=== PATIENT | female | born 1950 | race Caucasian/White ===

== ENCOUNTER 2018-03-06 13:29 | Emergency (ER) | payer OTHER ==
[2018-03-06] MEDS: ACETAMINOPHEN 325 MG TAB PO (14:01)
== END 2018-03-06 15:29 | disposition home or self-care (01) ==
LOC: E/R 13:29
DX: S06.0X1A Concussion with loss of consciousness of 30 minutes or less, initial encounter (principal); E11.9 Type 2 diabetes mellitus without complications; I10 Essential (primary) hypertension; W01.198A Fall on same level from slipping, tripping and stumbling with subsequent striking against other object, initial encounter; Y92.9 Unspecified place or not applicable; Z79.4 Long term (current) use of insulin; Z79.82 Long term (current) use of aspirin
CPT/HCPCS: 70450; 72125; 99284-25

== ENCOUNTER 2018-08-13 11:40 | Emergency (ER) | payer OTHER ==
[2018-08-13] MEDS: SOD CHLORIDE 0.9% 1,000 ML IV (12:49)
[2018-08-13 12:51] LABS: ADD MAN DIFF? NO
[2018-08-13 13:00] LABS: WHITE BLOOD COUNT 7.8 10^3/ul (4.8-10.8)
[2018-08-13 13:00] LABS: BASOPHILS % 0.5 % (0.0-2.0); EOSINOPHILS % 0.4 % (0.0-7.0); HEMATOCRIT 34.4 % (37.0-47.0); HEMOGLOBIN 11.2 g/dl (12.0-16.0); LYMPHOCYTES # 2.6 10^3/ul (0.8-2.9); LYMPHOCYTES % 33.6 % (15.0-51.0); MEAN CORPUSCULAR HEMOGLOBIN 27.5 pg (29.0-33.0); MEAN CORPUSCULAR HGB CONC 32.6 g/dl (32.0-37.0); MEAN CORPUSCULAR VOLUME 84.3 fl (82.0-101.0); MEAN PLATELET VOLUME 10.1 fl (7.4-10.4); MONOCYTE # 0.7 10^3/ul (0.3-0.9); MONOCYTES % 8.8 % (0.0-11.0); NEUTROPHIL # 4.4 10^3/ul (1.6-7.5); NEUTROPHILS % 56.2 % (39.0-77.0); PLATELET COUNT 282 10^3/UL (140-415); RED BLOOD COUNT 4.08 10^6/ul (4.20-5.40); RED CELL DISTRIBUTION WIDTH 14.4 % (11.5-14.5)
[2018-08-13 13:20] LABS: ANION GAP 6 (5-13); BLOOD UREA NITROGEN 16 mg/dl (7-20); CALCIUM 9.6 mg/dl (8.4-10.2); CARBON DIOXIDE 29 mmol/L (21-31); CHLORIDE 102 mmol/L (97-110); CREATININE 0.56 mg/dl (0.44-1.00); Estimated GFR > 60 mL/min (>60); GLUCOSE 180 mg/dl (70-220); INR 0.92; PARTIAL THROMBOPLASTIN TIME 25.8 Sec (23.0-35.0); POTASSIUM 4.6 mmol/L (3.5-5.1); PROTIME 12.5 Sec (11.9-14.9); SODIUM 137 mmol/L (135-144)
[2018-08-13] MEDS: MAGNESIUM CITRATE 300 ML BTL PO (13:20)
[2018-08-13 13:33] LABS: CREATINE KINASE 79 IU/L (23-200)
[2018-08-13] MEDS: KETOROLAC 15 MG INJ IV (13:52)
[2018-08-13 13:55] LABS: TROPONIN-I < 0.012 ng/ml (0.000-0.120)
== END 2018-08-13 14:50 | disposition home or self-care (01) ==
LOC: E/R 11:40
DX: K59.00 Constipation, unspecified (principal); I10 Essential (primary) hypertension; E11.9 Type 2 diabetes mellitus without complications; R20.2 Paresthesia of skin; Z79.4 Long term (current) use of insulin
CPT/HCPCS: 36415; 70450; 71045; 80048; 82550; 82962; 84484; 85025; 85610; 85730; 93005; 96374; 99285-25

== ENCOUNTER 2018-10-29 17:20 | Inpatient (IN) | payer OTHER ==
[2018-10-29] MEDS: BELLADONNA/PHENOBARBITAL TAB PO (19:16)
[2018-10-29] MEDS: ONDANSETRON 4 MG INJ IV (19:16)
[2018-10-29] MEDS: LIDOCAINE/MYLANTA 40 ML BTL PO (19:16)
[2018-10-29] MEDS: SOD CHLORIDE 0.9% 1,000 ML IV ×2 (19:16→22:04)
[2018-10-29 19:21] LABS: ADD MAN DIFF? NO
[2018-10-29 19:24] LABS: BASOPHIL # 0.1 10^3/ul (0.0-0.1); BASOPHILS % 0.6 % (0.0-2.0); EOSINOPHILS # 0.1 10^3/ul (0.0-0.5); EOSINOPHILS % 1.3 % (0.0-7.0); HEMATOCRIT 37.5 % (37.0-47.0); HEMOGLOBIN 11.8 g/dl (12.0-16.0); LYMPHOCYTES # 2.8 10^3/ul (0.8-2.9); LYMPHOCYTES % 27.7 % (15.0-51.0); MEAN CORPUSCULAR HEMOGLOBIN 28.1 pg (29.0-33.0); MEAN CORPUSCULAR HGB CONC 31.5 g/dl (32.0-37.0); MEAN CORPUSCULAR VOLUME 89.3 fl (82.0-101.0); MEAN PLATELET VOLUME 10.4 fl (7.4-10.4); MONOCYTE # 0.9 10^3/ul (0.3-0.9); MONOCYTES % 8.8 % (0.0-11.0); NEUTROPHIL # 6.1 10^3/ul (1.6-7.5); NEUTROPHILS % 61.3 % (39.0-77.0); PLATELET COUNT 302 10^3/UL (140-415); RED CELL DISTRIBUTION WIDTH 12.7 % (11.5-14.5)
[2018-10-29 19:32] LABS: ADD UMIC YES; UR ASCORBIC ACID 40 mg/dL (NEGATIVE); UR BILIRUBIN (Dip) NEGATIVE (NEGATIVE); UR BLOOD (Dip) NEGATIVE (NEGATIVE); UR CLARITY SLIGHTLY CLOUDY (CLEAR); UR COLOR YELLOW (YELLOW); UR GLUCOSE (Dip) NEGATIVE (NEGATIVE); UR KETONES (Dip) NEGATIVE (NEGATIVE); UR LEUKOCYTE ESTERASE (Dip) 1+ Leu/ul (NEGATIVE); UR NITRITE (Dip) NEGATIVE (NEGATIVE); UR RBC 3 /HPF (0-5); UR SPECIFIC GRAVITY (Dip) 1.019 (1.003-1.030); UR TOTAL PROTEIN (Dip) NEGATIVE (NEGATIVE); UR UROBILINOGEN (Dip) 1+ mg/dL (NEGATIVE); UR WBC 79 /HPF (0-5)
[2018-10-29 19:42] LABS: ALANINE AMINOTRANSFERASE 36 IU/L (13-69); ALBUMIN 4.6 g/dl (3.3-4.9); ALBUMIN/GLOBULIN RATIO 1.27; ALKALINE PHOSPHATASE 75 IU/L (42-121); ANION GAP 7 (5-13); ASPARTATE AMINO TRANSFERASE 35 IU/L (15-46); BILIRUBIN,INDIRECT 0.6 mg/dl (0-1.1); BILIRUBIN,TOTAL 0.6 mg/dl (0.2-1.3); BLOOD UREA NITROGEN 18 mg/dl (7-20); CALCIUM 9.9 mg/dl (8.4-10.2); CARBON DIOXIDE 29 mmol/L (21-31); CHLORIDE 103 mmol/L (97-110); Estimated GFR > 60 mL/min (>60); GLUCOSE 161 mg/dl (70-220); LIPASE 59 U/L (23-300); POTASSIUM 4.2 mmol/L (3.5-5.1); SODIUM 139 mmol/L (135-144); TOTAL PROTEIN 8.2 g/dl (6.1-8.1)
[2018-10-29 19:52] LABS: TROPONIN-I < 0.012 ng/ml (0.000-0.120)
[2018-10-29] MEDS: CEFTRIAXONE 1 GM/50 ML (PMX) 50 ML IVPB (20:35)
[2018-10-29] MEDS ORDERED: GLUCAGON 1 MG INJ IM (21:30)
[2018-10-29] MEDS ORDERED: GLUCOSE GEL 15 GRAM TUBE BUCCAL (21:30)
[2018-10-29] MEDS ORDERED: GLUCOSE GEL 15 GRAM TUBE PO ×2 (21:30)
[2018-10-29] MEDS ORDERED: MAGNESIUM CITRATE 300 ML BTL PO (21:30)
[2018-10-29] MEDS ORDERED: NACL 0.9% 3 ML SYG IV (21:30)
[2018-10-29] MEDS ORDERED: ONDANSETRON 4 MG INJ IV (21:30)
[2018-10-29] MEDS ORDERED: DEXTROSE 50% 50 ML SYRINGE IV ×2 (21:30)
[2018-10-29] MEDS: ACETAMINOPHEN 325 MG TAB PO (23:27)
[2018-10-30] MEDS: ACCU-CHEK XX ×6 (02:00→20:42)
[2018-10-30 07:06] LABS: ADD MAN DIFF? NO
[2018-10-30 07:13] LABS: BASOPHILS % 0.4 % (0.0-2.0); EOSINOPHILS # 0.1 10^3/ul (0.0-0.5); EOSINOPHILS % 1.3 % (0.0-7.0); HEMATOCRIT 33.8 % (37.0-47.0); HEMOGLOBIN 10.6 g/dl (12.0-16.0); LYMPHOCYTES # 2.4 10^3/ul (0.8-2.9); LYMPHOCYTES % 26.5 % (15.0-51.0); MEAN CORPUSCULAR HEMOGLOBIN 28.3 pg (29.0-33.0); MEAN CORPUSCULAR HGB CONC 31.4 g/dl (32.0-37.0); MEAN CORPUSCULAR VOLUME 90.1 fl (82.0-101.0); MEAN PLATELET VOLUME 10.8 fl (7.4-10.4); MONOCYTE # 0.8 10^3/ul (0.3-0.9); MONOCYTES % 8.9 % (0.0-11.0); NEUTROPHIL # 5.6 10^3/ul (1.6-7.5); NEUTROPHILS % 62.7 % (39.0-77.0); PLATELET COUNT 253 10^3/UL (140-415); RED BLOOD COUNT 3.75 10^6/ul (4.20-5.40); RED CELL DISTRIBUTION WIDTH 12.8 % (11.5-14.5)
[2018-10-30 07:36] LABS: ALANINE AMINOTRANSFERASE 30 IU/L (13-69); ALBUMIN 3.8 g/dl (3.3-4.9); ALBUMIN/GLOBULIN RATIO 1.31; ALKALINE PHOSPHATASE 56 IU/L (42-121); ANION GAP 4 (5-13); ASPARTATE AMINO TRANSFERASE 31 IU/L (15-46); BILIRUBIN,INDIRECT 0.6 mg/dl (0-1.1); BILIRUBIN,TOTAL 0.6 mg/dl (0.2-1.3); BLOOD UREA NITROGEN 15 mg/dl (7-20); CARBON DIOXIDE 29 mmol/L (21-31); CHLORIDE 107 mmol/L (97-110); CREATININE 0.57 mg/dl (0.44-1.00); Estimated GFR > 60 mL/min (>60); GLUCOSE 124 mg/dl (70-220); MAGNESIUM 2.1 mg/dl (1.7-2.5); PHOSPHORUS 3.8 mg/dl (2.5-4.9); POTASSIUM 4.5 mmol/L (3.5-5.1); SODIUM 140 mmol/L (135-144); TOTAL PROTEIN 6.7 g/dl (6.1-8.1)
[2018-10-30] MEDS ORDERED: traMADol 50 MG TAB PO (08:00)
[2018-10-30] MEDS: INSULIN ASPART [NOVOLOG] 3 ML PEN SC ×4 (08:00→20:41)
[2018-10-30] MEDS: PANTOPRAZOLE (EC) 40 MG TAB PO (08:10)
[2018-10-30] MEDS: metFORMIN 500 MG TAB PO ×2 (08:11→17:32)
[2018-10-30 08:43] LABS: HEMOGLOBIN A1C 6.8 % (0-5.9)
[2018-10-30] MEDS ORDERED: INSULIN GLARGINE [LANTus] (100 UNITS/ML) SYG SC (09:00)
[2018-10-30] MEDS: INSULIN GLARGINE [LANTus] (100 UNITS/ML) SYG SC (09:31)
[2018-10-30] MEDS: CEFTRIAXONE 1 GM/50 ML (PMX) 50 ML IVPB (09:34)
[2018-10-30] MEDS: AMLODIPINE 10 MG TAB PO (09:41)
[2018-10-30] MEDS: ASPIRIN (EC) 81 MG TAB PO (09:42)
[2018-10-30] MEDS: LOSARTAN 50 MG TAB PO (09:42)
[2018-10-30] MEDS: CHOLECALCIFEROL 1,000 UNIT TAB PO (09:42)
[2018-10-30] MEDS: LORATADINE 10 MG TAB PO (09:43)
[2018-10-30] MEDS: SOD CHLORIDE 0.9% 1,000 ML IV ×2 (11:42→23:07)
[2018-10-30] MEDS: ATORVASTATIN 20 MG TAB PO (20:41)
[2018-10-30] MEDS: ACETAMINOPHEN 325 MG TAB PO (20:41)
[2018-10-31 05:28] LABS: ADD MAN DIFF? NO
[2018-10-31 05:34] LABS: WHITE BLOOD COUNT 8.6 10^3/ul (4.8-10.8)
[2018-10-31 05:34] LABS: BASOPHILS % 0.5 % (0.0-2.0); EOSINOPHILS # 0.1 10^3/ul (0.0-0.5); EOSINOPHILS % 1.3 % (0.0-7.0); HEMATOCRIT 33.9 % (37.0-47.0); HEMOGLOBIN 10.6 g/dl (12.0-16.0); LYMPHOCYTES # 2.9 10^3/ul (0.8-2.9); LYMPHOCYTES % 33.5 % (15.0-51.0); MEAN CORPUSCULAR HEMOGLOBIN 28.3 pg (29.0-33.0); MEAN CORPUSCULAR HGB CONC 31.3 g/dl (32.0-37.0); MEAN CORPUSCULAR VOLUME 90.4 fl (82.0-101.0); MEAN PLATELET VOLUME 10.5 fl (7.4-10.4); MONOCYTE # 0.8 10^3/ul (0.3-0.9); MONOCYTES % 8.8 % (0.0-11.0); NEUTROPHIL # 4.8 10^3/ul (1.6-7.5); NEUTROPHILS % 55.5 % (39.0-77.0); PLATELET COUNT 238 10^3/UL (140-415); RED BLOOD COUNT 3.75 10^6/ul (4.20-5.40); RED CELL DISTRIBUTION WIDTH 12.8 % (11.5-14.5)
[2018-10-31] MEDS: PANTOPRAZOLE (EC) 40 MG TAB PO (05:44)
[2018-10-31 05:57] LABS: ANION GAP 7 (5-13); BLOOD UREA NITROGEN 14 mg/dl (7-20); CALCIUM 9.8 mg/dl (8.4-10.2); CARBON DIOXIDE 27 mmol/L (21-31); CHLORIDE 107 mmol/L (97-110); CREATININE 0.57 mg/dl (0.44-1.00); Estimated GFR > 60 mL/min (>60); GLUCOSE 110 mg/dl (70-220); POTASSIUM 4.3 mmol/L (3.5-5.1); SODIUM 141 mmol/L (135-144)
[2018-10-31] MEDS: MAGNESIUM HYDROXIDE 30ML CUP PO (06:14)
[2018-10-31] MEDS: INSULIN ASPART [NOVOLOG] 3 ML PEN SC ×3 (08:00→17:10)
[2018-10-31] MEDS: metFORMIN 500 MG TAB PO ×2 (08:21→17:17)
[2018-10-31] MEDS: CEFTRIAXONE 1 GM/50 ML (PMX) 50 ML IVPB (08:21)
[2018-10-31] MEDS: LOSARTAN 50 MG TAB PO (08:21)
[2018-10-31] MEDS: AMLODIPINE 10 MG TAB PO (08:21)
[2018-10-31] MEDS: CHOLECALCIFEROL 1,000 UNIT TAB PO (08:22)
[2018-10-31] MEDS: ASPIRIN (EC) 81 MG TAB PO (08:22)
[2018-10-31] MEDS: LORATADINE 10 MG TAB PO (08:22)
[2018-10-31] MEDS: ACCU-CHEK XX ×3 (08:23→17:10)
[2018-10-31] MEDS: INSULIN GLARGINE [LANTus] (100 UNITS/ML) SYG SC (08:27)
== END 2018-10-31 18:21 | disposition home or self-care (01) | DRG 690 ==
LOC: E/R 17:20 → PP2 21:05
DX: N39.0 Urinary tract infection, site not specified (principal); I10 Essential (primary) hypertension; E11.9 Type 2 diabetes mellitus without complications; R11.2 Nausea with vomiting, unspecified; M1A.9XX0 Chronic gout, unspecified, without tophus (tophi); B96.89 Other specified bacterial agents as the cause of diseases classified elsewhere; Z79.4 Long term (current) use of insulin; Z79.82 Long term (current) use of aspirin
CPT/HCPCS: 36415; 74176; 80048; 80053; 81001; 82962; 83036; 83690; 83735; 84100; 84484; 85025; 87086; 93005; 96361; 96374; 96375; 99285-25